=== PATIENT | male | born 1935 | race Hispanic/Latino ===

== ENCOUNTER → 2018-04-12 | Outpatient (REF) | payer MEDICARE ==
[~2018-04-12] MED LIST: ADLT ASA LOW81 MG PO; COLACE100 MG PO; GLIPIZIDE10 MG PO; GLUCOPHAGE1000 MG PO; LANTUS100 MG/ML SC; NUPERCAINAL1 % RE; SIMVASTATIN20 MG PO; ZESTRIL30 MG PO; ZOCOR20 M1 PO
[2018-04-12 08:10] LABS: HEMATOCRIT 44.4 % (39.0-50.0); HEMOGLOBIN 14.3 g/dl (14.0-18.0); IMMATURE GRANULOCYTES 0.3 % (0.0-5.0); MEAN CELL VOLUME 96.5 fL CALC (80.0-100.0); MEAN CORPUSCULAR HGB 31.1 pG CALC (26.0-32.0); MEAN CORPUSCULAR HGB CONC 32.2 g/L CALC (32.0-36.0); NEUT# 4.43 thou/uL (1.82-7.42); RED BLOOD COUNT 4.6 mill/uL (4.70-6.10); RED CELL DISTRI WIDTH 13.3 % (11.5-15.5)
[2018-04-12 08:54] LABS: URINE BILIRUBIN - DIPSTICK NEGATIVE (NEGATIVE); URINE BLOOD DIPSTICK NEGATIVE (NEGATIVE); URINE COLOR YELLOW; URINE GLUCOSE - DIPSTICK NEGATIVE (NEGATIVE); URINE KETONE NEGATIVE (NEGATIVE); URINE LEUK ESTERASE NEGATIVE (Negative); URINE NITRITE - DIPSTICK NEGATIVE (Negative); URINE PH 5.5 (4.5-8.0); URINE PROTEIN - DIPSTICK NEGATIVE (NEG-TRACE); URINE UROBILINOGEN - DIPSTICK 0.2 E.U./dL (0.2)
[2018-04-12 08:55] LABS: URINE CLARITY CLEAR
[2018-04-12 09:22] LABS: ALKALINE PHOSPHATASE 81 u/l (38-126); ANION GAP 15 (6-22 (CALC)); BILIRUBIN, TOTAL 0.7 mg/dL (0.0-1.4); BUN 25 mg/dL (8-23); BUN/CREATININE RATIO 22 (12-20 (CALC)); CALCULATED LDLCHOLESTEROL 136 mg/dL (62-129 (CALC)); CARBON DIOXIDE 26 mmol/l (22-30); CHLORIDE 103 mmol/l (95-108); CHOLESTEROL HDL RATIO 5.1 (<4.4 (CALC)); CREATININE 1.1 mg/dL (0.7-1.3); GFR > 60 ML/MIN (>=60 (CALC)); GFR FOR AFR.AMER. > 60 ML/MIN (>=60 (CALC)); HDL CHOLESTEROL 41 mg/dL (>=40); SGOT/AST 22 u/l (19-48); SODIUM 139 mmol/l (137-146); TOTAL CHOLESTEROL 209 mg/dl (0-199); TOTAL PROTEIN 7.4 g/dL (6.3-8.2); TRIGLYCERIDES REFLEX TO dLDL 158 mg/dl (30-149); VLDL CHOLESTROL 32 mg/dl (0-38 (CALC))
[2018-04-12 09:38] LABS: POTASSIUM 5.1 mmol/l (3.5-5.1)
[2018-04-12 09:42] LABS: TSH, 3RD GENERATION 4.05 uIU/mL (0.47 - 4.68)
== END | disposition home or self-care (01) ==
LOC: LAB 07:03
PROVIDERS: ATTEND Internal Medicine
DX: Z00.01 Encounter for general adult medical examination with abnormal findings (principal); Z12.5 Encounter for screening for malignant neoplasm of prostate; I10 Essential (primary) hypertension; E11.8 Type 2 diabetes mellitus with unspecified complications

== ENCOUNTER 2022-03-15 11:45 | Emergency (ER) | payer OTHER, MEDICARE ==
[~2022-03-15] VITALS: Ht 162.6 cm; Wt 97.0 kg
[2022-03-15] VITALS (9 sets, daily range): BP systolic 121–173; BP diastolic 48–101
[2022-03-15 12:43] LABS: BASO% 0.4 % (0-3); EOS% 2.1 % (0-8); HEMATOCRIT 42.4 % (39.0-50.0); HEMOGLOBIN 13.8 g/dl (14.0-18.0); IMMATURE GRANULOCYTES 0.5 % (0.0-5.0); LYMPH% 20.2 % (15-41); MEAN CELL VOLUME 95.3 fL CALC (80.0-100.0); MEAN CORPUSCULAR HGB CONC 32.5 g/dL CAL (32.0-36.0); MONO% 5.5 % (2-13); NEUT# 7.82 thou/uL (1.82-7.42); NEUT% 71.3 % (42-76); RED BLOOD COUNT 4.45 mill/uL (4.70-6.10); RED CELL DISTRI WIDTH 13.3 % (11.5-15.5)
[2022-03-15 13:00] LABS: ALBUMIN 3.7 g/dL (3.2-5.0); ALKALINE PHOSPHATASE 82 u/l (38-126); ANION GAP 11 (6-22 (CALC)); BILIRUBIN, TOTAL 0.5 mg/dL (0.2-1.3); BUN 22 mg/dL (8-23); BUN/CREATININE RATIO 22 (12-20 (CALC)); CARBON DIOXIDE 26 mmol/l (22-30); CHLORIDE 103 mmol/l (95-108); GFR FOR AFR.AMER. > 60 ML/MIN (>=60 (CALC)); GFR OTHER RACES > 60 ML/MIN (>=60 (CALC)); POTASSIUM 4.8 mmol/l (3.5-5.1); SGOT/AST 31 u/l (19-48); SODIUM 135 mmol/l (137-146); TOTAL PROTEIN 6.8 g/dL (6.3-8.2)
== END 2022-03-15 16:58 | disposition short-term general hospital (02) | DRG 536 ==
LOC: ED 11:45
PROVIDERS: Emergency Medicine
DX: S32.302A Unspecified fracture of left ilium, initial encounter for closed fracture (principal); E11.9 Type 2 diabetes mellitus without complications; V43.52XA Car driver injured in collision with other type car in traffic accident, initial encounter; Z79.84 Long term (current) use of oral hypoglycemic drugs